=== PATIENT | female | born 1955 | race Caucasian/White ===

== ENCOUNTER 2017-01-06 08:27 | Day surgery (SDC) | payer BC ==
[2017-01-01 15:46] VITALS: BMI 34.1
[~2017-01-06 08:27] MED LIST: LACTATED RINGERS 1,000 ML IV SCH; LIDOCAINE 1% 20 ML VIAL (10MG/ML) FOR IV START INTRADERMA PRN
[2017-01-06 10:05] VITALS: TEMP 98.5
[2017-01-06] MEDS ORDERED: LIDOCAINE 1% INJ 10MG/ML (20 ML MDV) ONE (10:59)
[2017-01-06] MEDS ORDERED: PROPOFOL 10 MG/ML 20 ML VIAL IV ONE (10:59)
[2017-01-06] MEDS ORDERED: GLUCAGON 1 MG/ML VIAL ONE (10:59)
--- NOTE | 2017-01-06 11:03 | P.GSHP ---
History of Present Illness H&P Date: 01/06/17 Chief Complaint: Screening colonoscopy This is a 61-year-old female been safe for screening colonoscopy. Patient denies any significant GI complaints. Her last colonoscopy was over 10 years ago. - Constitutional Constitutional: Reports as per HPI Past Medical History Past Medical History: Osteoarthritis (OA), Thyroid Disorder Additional Past Medical History / Comment(s): MIGRAINES, BACK PAIN, HAS SOME BEE STINGS., HX OF BACK SURGERY (2000 @ [facility]) WITH STAPH INFECTION , PICC LINE AND ANTIBIOTICS. History of Any Multi-Drug Resistant Organisms: None Reported Past Surgical History: Back Surgery, Breast Surgery, Cholecystectomy, Hysterectomy Additional Past Surgical History / Comment(s): BACK SURGERY (2000) Past Anesthesia/Blood Transfusion Reactions: No Reported Reaction Past Psychological History: Anxiety, Depression Smoking Status: Never smoker Past Alcohol Use History: Occasional Past Drug Use History: None Reported - Past Family History Mother Family Medical History: Cancer Additional Family Medical History / Comment(s): COLON CANCER Medications and Allergies Home Medications Medication Instructions Recorded Confirmed Type ARIPiprazole [Abilify] 5 mg PO DAILY 01/01/17 01/01/17 History Aspirin 325 mg PO DAILY 01/01/17 01/01/17 History DULoxetine HCL [Cymbalta] 60 mg PO BID 01/01/17 01/01/17 History Ezetimibe [Zetia] 10 mg PO DAILY 01/01/17 01/01/17 History Levothyroxine Sodium [Synthroid] 100 mcg PO DAILY 01/01/17 01/01/17 History Multivitamins, Thera [Multivitamin 1 tab PO DAILY 01/01/17 01/01/17 History (formulary)] Oxymorphone HCl [Oxymorphone HCl 20 mg PO BID 01/01/17 01/01/17 History ER] Rosuvastatin [Crestor] 10 mg PO DAILY 01/01/17 01/01/17 History SUMAtriptan SUCCINATE [Imitrex] 50 mg PO ONCE PRN 01/01/17 01/06/17 History Allergies Allergy/AdvReac Type Severity Reaction Status Date / Time No Known Allergies Allergy Verified 01/06/17 10:05 Surgical - Exam Vital Signs Temp Pulse Resp BP Pulse Ox 98.5 F 91 16 156/99 91 L 01/06/17 10:04 01/06/17 10:04 01/06/17 10:04 01/06/17 10:04 01/06/17 10:04 Assessment and Plan Plan: We'll perform screening colonoscopy.
--- NOTE | 2017-01-06 11:21 | P.OP ---
Date of Procedure: 01/06/17 Preoperative Diagnosis: Screening colonoscopy Postoperative Diagnosis: Diverticulosis Tortuous colon Procedure(s) Performed: Colonoscopy Implants: Anesthesia: MAC Surgeon: Anand Blandon Pathology: none sent Condition: stable Disposition: PACU Indications for Procedure: Operative Findings: Description of Procedure: The patient's placed on the endoscopy table in the lateral position. She received IV sedation. Digital rectal exam was performed which revealed no abnormalities. The flexible colonoscope was then placed patient anus passed throughout the colon. The scope could not pass beyond the splenic flexure secondary tortuosity valve. Multiple times made to maneuver the scope. However this wasn't possible due to the tortuous colon. Scope was withdrawn.. There was evidence of diverticular changes and sigmoid colon. The rectum. Normal. Scope was withdrawn for patient.
[2017-01-06 11:40] VITALS: RESP 18
[2017-01-06 11:51] VITALS: BP 155/97; PULSE 74
== END 2017-01-06 12:02 | disposition home or self-care (01) ==
LOC: ORWHC2ENDO 08:27
PROVIDERS: ATTEND Surgery
DX: Z12.11 Encounter for screening for malignant neoplasm of colon (principal); K57.30 Diverticulosis of large intestine without perforation or abscess without bleeding; Q43.8 Other specified congenital malformations of intestine; E78.5 Hyperlipidemia, unspecified; M19.90 Unspecified osteoarthritis, unspecified site; E07.9 Disorder of thyroid, unspecified; G43.909 Migraine, unspecified, not intractable, without status migrainosus; F41.9 Anxiety disorder, unspecified; F32.9 Major depressive disorder, single episode, unspecified; Z79.82 Long term (current) use of aspirin; Z79.891 Long term (current) use of opiate analgesic; Z79.899 Other long term (current) drug therapy
CPT/HCPCS: J1610; J2001; J2704; G0104; 45378

== ENCOUNTER → 2017-04-06 | Outpatient (CLI) | payer BC ==
--- NOTE | 2017-04-06 18:45 | BD ---
EXAMINATION TYPE: MG DEXA axial skeleton. DATE OF EXAM: 04/06/2017 COMPARISON: 04/13/2014 CLINICAL HISTORY: Postmenopausal female. Screening. Height: 63.7 IN Weight: 207 LBS FRAX RISK QUESTIONS: Alcohol (3 or more units per day): NO Family History (Parent hip fracture): NO Glucocorticoids (More than 3mos): NO (Ex: prednisone, prednisolone, methylprednisolone, dexamethasone, and hydrocortisone). History of Fracture in Adulthood: NO Secondary Osteoporosis: 1. Type 1 Diabetes: NO 2. Hyperthyroidism: NO 3. Menopause before 45: NO 4. Malnutrition: NO 5. Chronic liver disease: NO Rheumatoid Arthritis: NO Current Tobacco Use: NO RISK FACTORS HISTORY OF: Surgery to Spine:L-SPINE When: 2000 Active: YES Postmenopausal woman: AGE 44 Take estrogen and/or progesterone medications: NONE NOW How long: TOOK HORMONES FROM AGE 44- 59 OFF AND ON MEDICATIONS: Thyroid Medications: YES Which medication: Synthroid How Lon + YEARS Additional Medications: VIT D, SYNTHROID,CYMBALTA, ABILIFY, OXYMORPHEN, CRESTOR, ZETIA, IMITREX, FISH OIL EXAM MEASUREMENTS: Bone mineral densitometry was performed using the [employer] System. PT HAD L-SPINE SURGERY IN 2000. Bone mineral density about the R hip (g/cm2): 0.894 Bone mineral density about the L hip (g/cm2): 0.896 T Score values are as follows: -----R Neck: -1.0 -----L Neck: -1.0 -----R Total: -0.2 -----L Total: -0.7 Bone mineral density has: Decreased -4.2% since study of: 04/13/2014 IMPRESSION: Osteopenia (T Score between -2.5 and -1) as noted by T score values with regards to both hips There is slightly increased risk of fracture and the patient may be considered for treatment. Re-Screen 2-5 years. NOTE: T-SCORE=SD OF THE YOUNG ADULT MEAN.
--- NOTE | 2017-04-07 08:58 | MM ---
Reason for exam: screening (asymptomatic). Last mammogram was performed 2 years ago. History: Patient is postmenopausal and is nulliparous. Reductions of both breasts, 1988. Taking estrogen for 9 years 6 months. Physical Findings: A clinical breast exam by your physician is recommended on an annual basis and results should be correlated with mammographic findings. MG Screening Mammo w CAD Bilateral CC and MLO view(s) were taken. Prior study comparison: April 16, 2015, bilateral MG screening mammo w CAD. April 13, 2014, bilateral MG screening mammo w CAD. The breast tissue is almost entirely fat. There are positive dermal calcifications. There is no discrete abnormality. No significant changes when compared with prior studies. ASSESSMENT: Benign, BI-RAD 2 RECOMMENDATION: Routine screening mammogram of both breasts in 1 year.
== END | disposition home or self-care (01) ==
LOC: RADMAMWWP 15:17
PROVIDERS: ATTEND Internal Medicine Geriatric Medicine
DX: Z12.31 Encounter for screening mammogram for malignant neoplasm of breast (principal); M85.851 Other specified disorders of bone density and structure, right thigh; M85.852 Other specified disorders of bone density and structure, left thigh
CPT/HCPCS: 77080; G0202

== ENCOUNTER → 2020-10-23 | Outpatient (CLI) | payer MEDICARE ==
--- NOTE | 2020-10-24 13:56 | MM ---
Reason for exam: screening (asymptomatic). Last mammogram was performed 3 years and 7 months ago. History: Patient is postmenopausal and is nulliparous. Reductions of both breasts, 1988. Taking estrogen for 9 years 6 months. Physical Findings: A clinical breast exam by your physician is recommended on an annual basis and results should be correlated with mammographic findings. MG 3D Screening Mammo W/Cad Bilateral CC and MLO view(s) were taken. Prior study comparison: April 06, 2017, bilateral MG screening mammo w CAD. April 16, 2015, bilateral MG screening mammo w CAD. There are scattered fibroglandular densities. No significant changes when compared with prior studies. ASSESSMENT: Benign, BI-RAD 2 RECOMMENDATION: Routine screening mammogram of both breasts in 1 year.
== END | disposition home or self-care (01) ==
LOC: RADMAMWWP 08:24
PROVIDERS: ATTEND Internal Medicine Geriatric Medicine
DX: Z12.31 Encounter for screening mammogram for malignant neoplasm of breast (principal); Z78.0 Asymptomatic menopausal state
CPT/HCPCS: 77063; 77067

== ENCOUNTER → 2020-12-25 | Outpatient (CLI) | payer MEDICARE ==
--- NOTE | 2020-12-25 15:56 | BD ---
EXAMINATION TYPE: Axial Bone Density DATE OF EXAM: 12/25/2020 COMPARISON: 04.06.2017 CLINICAL HISTORY: 65 YR OLD FEMALE.....ICD-10 CODE: M81.0 AGE RELATED OSTEOPOROSIS Height: 63.3 Weight: 200 FRAX RISK QUESTIONS: History of Fracture in Adulthood: YES Secondary Osteoporosis: YES 3. Menopause before 45: YES RISK FACTORS HISTORY OF: History of Wrist Fracture: HX OF LT WRIST AND FOREARM FX AN ADULT Surgery to Spine HX OF LAMINECTOMY AND FUSION....L4 AND L5 AN ADULT Postmenopausal woman: YES, AT AGE, 36 YRS OLD, TOTAL HYST Take estrogen and/or progesterone medications: IN THE PAST FOR FEW YRS Lost more than 2 inches in height since high school: YES Frequent falls: UNSTEADY, VERTIGO Hyperparathyroidism: ? Adrenal Insufficiency: ? MEDICATIONS: Thyroid Medications: YES, SYNTHROID FOR OVER 20 YRS Additional Medications: CELEXA, STATIN FOR CHOLESTEROL, VIT D Additional History: HX OF BACK SURG, PAIN, CHOLESTEROL, THYROID EXAM MEASUREMENTS: Bone mineral densitometry was performed using the [employer] System. Bone mineral density about the R hip (g/cm2): 0.918 Bone mineral density about the L hip (g/cm2): 0.922 T Score values are as follows: -----R Neck: -1.1 -----L Neck: -0.9 -----R Total: -0.7 -----L Total: -0.7 Bone mineral density has: Decreased -3.5% since study of: 04.06.2017 FRAX%s: THERE IS A 13.2% CHANCE FOR A MAJOR OSTEOPOROTIC FX AND A 1.1% FOR HIP.....PROBABILITY FO R FX IN 10 YRS TIME Bone mineral density about the R Wrist (g/cm2): 0.438 T Score values are as follows: -----Dist. R+U: -3.3 -----Prox. R+U: -3.5 -----Radius total: -3.7 Bone mineral density FIRST BONE DENSITY OF WRIST...... IMPRESSION: Osteoporosis. NOTE: T-SCORE=SD OF THE YOUNG ADULT MEAN.
== END | disposition home or self-care (01) ==
LOC: RADBDWWP 07:47
PROVIDERS: ATTEND Internal Medicine Geriatric Medicine
DX: M81.0 Age-related osteoporosis without current pathological fracture (principal)
CPT/HCPCS: 77080

== ENCOUNTER → 2022-12-29 | Outpatient (CLI) | payer MEDICARE ==
--- NOTE | 2022-12-29 12:47 | BD ---
EXAMINATION TYPE: Axial Bone Density DATE OF EXAM: 12/29/2022 CLINICAL HISTORY: 67 years old Female. ICD-10 CODE: M81.0 SCREENING Height: 63 in Weight: 169 lbs RISK FACTORS HISTORY OF: History of Wrist Fracture: lt wrist age 8 Surgery to Spine: pt has had 2 l- spine surgeries since 2000 Active: limited Postmenopausal woman: total hysterectomy age 44 Take estrogen and/or progesterone medications: not now How long: took for 10 years MEDICATIONS: Thyroid Medications: yes Which medication: Synthroid How Lon+ years Additional Medications: vit d, depression meds, cholesterol meds, pain meds, EXAM MEASUREMENTS: Bone mineral densitometry was performed using the [employer] System. Pt has had 2 l-spine surgeries since 2000 Bone mineral density about the R hip (g/cm2): 0.807 Bone mineral density about the L hip (g/cm2): 0.776 T Score values are as follows: -----R Neck: -1.8 -----L Neck: -1.8 -----R Total: -1.6 -----L Total: -1.8 Z Score values are as follows: -----R Neck: -0.4 -----L Neck: -0.4 -----R Total: -0.4 -----L Total: -0.7 Bone mineral density has: Decreased -13.8% since study of: 12/25/2020 Bone mineral density about the R Wrist (g/cm2): 0.454 T Score values are as follows: -----Dist. R+U: -3.3 -----Prox. R+U: -3.8 -----Radius total: -3.7 Z Score values are as follows: -----Dist. R+U: -1.5 -----Prox. R+U: -2.0 -----Radius total: -1.9 Bone mineral density has: Decreased -4.4% since study of: 12/25/2020 FRAX%s: The graph provided illustrates a 10.7% chance for a major osteoporotic fx and a 1.8% chance f or the hips probability for fx in 10 years time. IMPRESSION: Osteoporosis (T Score less than -2.5). There is increased fracture risk and therapy is usually indicated based on age. Re-Screen 1-2 years. NOTE: T-SCORE=SD OF THE YOUNG ADULT MEAN.
--- NOTE | 2022-12-30 19:58 | MM ---
Reason for Exam: Screening (asymptomatic). Last mammogram was performed 2 year(s) and 2 month(s) ago. Patient History: Menarche at age 11. Patient has no children. Left ovary removed at age 44. Right ovary removed at age 44. Hysterectomy at age 44. Postmenopausal. Estrogen for 9 years, 6 months. 1988, Bilateral Reduction. Risk Values: Gabi 5 year model risk: 1.9%. NCI Lifetime model risk: 5.9%. Prior Study Comparison: 04/16/2015 Bilateral Screening Mammogram, [facility]. 04/06/2017 Bilateral Screening Mammogram, [facility]. 10/23/2020 Bilateral Screening Mammogram, [facility]. Tissue Density: There are scattered fibroglandular densities. Findings: Analyzed By CAD. Benign bilateral oil cyst calcifications redemonstrated. Area of subareolar asymmetric density on the left MLO view and right CC view remain unchanged. There is no suspicious group of microcalcifications or new suspicious mass in either breast. Overall Assessment: Benign, BI-RAD 2 Management: Screening Mammogram of both breasts in 1 year. . Patient should continue monthly self-breast exams. A clinical breast exam by your physician is recommended on an annual basis. This exam should not preclude additional follow-up of suspicious palpable abnormalities. Note on Gabi scores and lifetime risk: 1. A Gabi score greater than 3% is considered moderate risk. If this is the case, consider specialist referral to assess eligibility for a risk reducing agent. 2. If overall lifetime risk for the development of breast cancer is 20% or higher, the patient may qualify for future screening with alternating mammogram and breast MRI. Electronically signed and approved by: Eric Cartwright M.D. Radiologist
== END | disposition home or self-care (01) ==
LOC: RADMAMWWP 10:10
PROVIDERS: ATTEND Internal Medicine Geriatric Medicine
DX: Z12.31 Encounter for screening mammogram for malignant neoplasm of breast (principal); M81.0 Age-related osteoporosis without current pathological fracture; M85.89 Other specified disorders of bone density and structure, multiple sites; Z78.0 Asymptomatic menopausal state
CPT/HCPCS: 77063; 77067; 77080

== ENCOUNTER → 2025-01-02 | Outpatient (CLI) | payer MEDICARE ==
--- NOTE | 2025-01-02 10:34 | BD ---
EXAMINATION TYPE: Axial Bone Density DATE OF EXAM: 01/02/2025 CLINICAL HISTORY: 69 years old Female. ICD-10 CODE: AGE RELATED OSTEOPOROSIS M81.0 , Additional Hist ory: Height: 63 Weight: 170 FRAX RISK QUESTIONS: Family History (Parent hip fracture): no History of Fracture in Adulthood: no Secondary Osteoporosis: non RISK FACTORS HISTORY OF: History of LT Wrist Fracture: yes When: age 8 Surgery to Spine): yes with hardware When: 2000 MEDICATIONS: Thyroid Medications: yes Which medication: Synthroid How Lon+ years Osteoporosis Medications: yes Which medication: unsure How Lon+ years EXAM MEASUREMENTS: Bone mineral densitometry was performed using the [employer] System. Bone mineral density about the R hip (g/cm2): 0.737 Bone mineral density about the L hip (g/cm2): 0.770 T Score values are as follows: -----R Neck: -2.3 -----L Neck: -1.8 -----R Total: -2.1 -----L Total: -1.9 Z Score values are as follows: -----R Neck: -0.8 -----L Neck: -0.3 -----R Total: -0.9 -----L Total: -0.6 Bone mineral density has: Decreased -4.8% since study of: 12/29/2022 Bone mineral density about the R Wrist (g/cm2): 0.440 T Score values are as follows: -----Dist. R+U: -4.1 -----Prox. R+U: -3.8 -----Radius total: -3.9 Z Score values are as follows: -----Dist. R+U: -2.1 -----Prox. R+U: -1.9 -----Radius total: -1.9 Bone mineral density has: a 0.0% since study of: 12/29/2022 FRAX%s: The graph provided illustrates a 14.0% chance for a major osteoporotic fx and a 3.5% chance f or the hips probability for fx in 10 years time. IMPRESSION: Osteoporosis (T Score less than -2.5). There is increased fracture risk and therapy is usually indicated based on age. Re-Screen 1-2 years. NOTE: T-SCORE=SD OF THE YOUNG ADULT MEAN. [facility], , 01/02/2025 10:32 AM
--- NOTE | 2025-01-02 10:40 | MM ---
Reason for Exam: Screening (asymptomatic). Last mammogram was performed 2 year(s) and 0 month(s) ago. Patient History: Menarche at age 11. Patient has no children. Left ovary removed at age 44. Right ovary removed at age 44. Hysterectomy at age 44. Postmenopausal. Estrogen for 9 years, 6 months. 1988, Bilateral Reduction. Risk Values: Gabi 5 year model risk: 1.9%. NCI Lifetime model risk: 5.4%. Prior Study Comparison: 04/06/2017 Bilateral Screening Mammogram, [facility]. 10/23/2020 Bilateral Screening Mammogram, [facility]. 12/29/2022 Bilateral MG 3D screening mammo w/cad, [facility]. Tissue Density: The breasts are almost entirely fatty. Findings: Analyzed By CAD. Right breast: There is no suspicious group of microcalcifications or new suspicious mass. Benign-appearing calcifications right breast. Left breast: There is no suspicious group of microcalcifications or new suspicious mass. Benign-appearing calcifications left breast. Overall Assessment: Benign, BI-RAD 2 Management: Screening Mammogram of both breasts in [address] [facility] will attempt to contact patient to return for supplemental views and ultrasound if indicated. Patient should continue monthly self-breast exams. A clinical breast exam by your physician is recommended on an annual basis. This exam should not preclude additional follow-up of suspicious palpable abnormalities. Note on Gabi scores and lifetime risk: 1. A Gabi score greater than 3% is considered moderate risk. If this is the case, consider specialist referral to assess eligibility for a risk reducing agent. 2. If overall lifetime risk for the development of breast cancer is 20% or higher, the patient may qualify for future screening with alternating mammogram and breast MRI. [facility], , 01/02/2025 10:36 AM. Electronically signed and approved by: Jc Rushing DO
== END | disposition home or self-care (01) ==
LOC: RADBDWWP 08:32
PROVIDERS: ATTEND Internal Medicine Geriatric Medicine
DX: Z12.31 Encounter for screening mammogram for malignant neoplasm of breast (principal); M81.0 Age-related osteoporosis without current pathological fracture; R92.313 Mammographic fatty tissue density, bilateral breasts; R92.1 Mammographic calcification found on diagnostic imaging of breast; Z78.0 Asymptomatic menopausal state
CPT/HCPCS: 77063; 77067; 77080